=== PATIENT | female | born 1995 | race Caucasian/White ===

== ENCOUNTER → 2019-07-10 | Day surgery (SDC) | payer OTHER ==
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
[~2019-07-10] MED LIST: ACETAMINOPHEN 1000 MG/100 ML 100 ML IV ONE; ACETAMINOPHEN 1000 MG/100 ML IV ONE; DEXAMETHASONE SOD PHOS INJ 4 MG/ML VIAL ONE; EPINEPHRINE HCL 1:1000 1ML 1 MG/ML AMP ONE; IODINE PO; IRON PO; LIDOCAINE 1% W/EPINEPHRINE 20 ML VIAL ONE; LIDOCAINE HCL (LTA) 4 ML SOLN ONE; LIDOCAINE HCL 2% LOCAL INJ 5 ML SDV VIAL INJ ONE; ONDANSETRON HCL INJ 2MG/ML 2ML 2 MG/ML VIAL ONE; PRENATAL VITAM1 EACH PO; PROPOFOL IV EMULSION 10 MG/ML 20 ML VIAL ONE; SEVOFLURANE INHAL SOLN 250 ML PEN BTL ONE; VITAMIN B 12 PO; VITAMIN D3 PO
[2019-07-10 14:55] VITALS: BP 124/70
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
--- OUTSIDE RECORDS SUMMARY | 2019-07-20 10:37 | XMS REPORT ---
Author Author [facility] Address Unknown Phone Unavailable Care Team Providers Care Export Specialist Name Role Phone Vaibhav Mulligan Unavailable Unavailable Anthony Sneed Unavailable Unavailable Mariana Garrido Unavailable Unavailable Myrtle Carreno Unavailable Unavailable Problems This patient has no known problems. Allergies, Adverse Reactions, Alerts This patient has no known allergies or adverse reactions. Medications This patient has no known medications. Results Test Description Test Time Test Comments Text Results Atomic Results Result Comments Sinus Wo Cont 2019-07-05 17:20:00 [place] [address] [facility] REPORT Name: FARAZ GALVANKAMALJIT ZAZUETA Acct Number: [id number] :1995 Age:24 Sex:F Ord Phys: Vaibhav Mulligan MD Unit Number: [id number] [facility] Dr: Status: REG REF RAD Exam Date: 07/05/19 EXAM DESCRIPTION: CTSinus Wo Cont07/05/2019 4:58 pm CLINICAL HISTORY: J32.0 COMPARISON: None. TECHNIQUE: Computed axial tomography of the sinuses were obtained with coronal and sagittal reconstruction. All CT scans are performed using dose optimization technique as appropriate and may include automated exposure control or mA/KV adjustment according to patient size. FINDINGS: The maxillary, ethmoid, frontal and sphenoid sinuses are clear. The ostiomeatal complexes are patent. The mastoids are clear. Nasal septum is deviated towards the left IMPRESSION: 1. Clear sinuses. 2. Patent ostiomeatal complexes. 3. Deviated nasal septum Signed By: Brendon Avendaño MD Signed AT: 07/05/19 1721 Thyroid Para Parotid Gland 2019-07-05 17:07:00 [place] [address] [facility] REPORT Name: MANDYQIANAMI ZAZUETA Acct Number: [id number] :1995 Age:24 Sex:F Ord Phys: Vaibhav Mulligan MD Unit Number: [id number] [facility] Dr: Status: REG REF RAD Exam Date: 07/05/19 EXAM DESCRIPTION: US - Thyroid Para Parotid Gland - 07/05/2019 4:44 pm CLINICAL HISTORY: ICD E04.1 COMPARISON: None FINDINGS: The right lobe of the thyroid measures 4.5 x 1.6 x 2 centimeters. The left lobe of the thyroid measures 4.3 x 1.6 x 1.3 centimeters. The echotexture of each lobe of the thyroid gland is homogeneous. A nodule is not seen. 1.1 x 0.6 centimeter submental lymph node probably reactive in nature IMPRESSION: Unremarkable thyroid ultrasound Signed By: Brendon Avendaño MD Signed AT: 07/05/19 1708 Hep B Surface AG w/ Confirm 2019-03-04 12:42:00 Primary Language Haitian Nonreactive^^SCT^NonreactiveCONFIRMATION Not required according to the current package insert. Rubella virus antibody screen 2019-03-02 20:40:00 Rubella virus antibody screen (test qgfe=OTL4672) IMMUNE Primary Language EnglishComplete blood count (CBC) with automated white blood cell (WBC) kridavnegsqt1348-16-56 20:10:00* Test Item Value Reference Range Comments White blood cell count (test xxqu=UGV5276) 14.7 4.3-10.9 Blood erythrocytes count (number/volume) (test khns=93782-5) 3.65 M/ul 3.86-4.86 Hemoglobin measurement (test kdel=NCM3923) 11.0 g/dL 12.0-15.0 Blood hematocrit (volume fraction) (test jpzu=88633-0) 32.9 % 36.0-45.0 MCV (test nsik=YDK0238) 90.3 fL 80-100 30.2 MCHC (test code=MCHC) 33.4 g/dL 32.0-36.0 Platelets (test code=PLT) 120 152-406 Red Cell Distribution Width (test code=RDW) 16.7 % 12.1-15.2 Blood platelet mean volume (test xkek=63264-6) 10.5 fL 7.6-11.3 Neutrophils % (test code=YOANNA%) 80.6 % 41.7-73.7 Lymphocytes/leuk NFr Bld (test yddj=01342-9) 11.1 % 15.3-44.8 Monocyte percentage (test obvm=CDN0908) 6.6 % 3.3-12.3 1.2 Basophil % (test fudg=30003-3) 0.5 % 0-1.3 Absolute neutrophil count (test rifu=JXH9254) 11.9 1.8-8.0 Absolute lymphocyte count (test vhiu=99716-0) 1.6 0.7-4.9 Absolute monocyte count (test qpjh=VLH5104) 1.0 0.1-1.3 Absolute Eosinophils (test code=EOA) 0.2 0-0.5 Absolute Basophils (test code=BASA) 0.1 0-0.5 Primary Language EnglishBlood smear scan (BSS)2019-03-02 20:10:00* Test Item Value Reference Range Comments Blood morphology interpretation narrative (test awpk=84112-7) NOT SEEN NOT SEEN Primary Language Bvvknib03191--MOKS PATH LEVEL 11795-16-37 17:15:00 RUN DATE: 03/02/19 [facility]*Kandi davis* PAGE 1 RUN TIME: 1715 Specimen Inqu iry PATIENT: QIAN GALVAN ACC T: [id number] LOC: [facility] U: [id number] AGE/SX: 23/F ROOM: [facility] RE03/01/19REG DR: Vini Sneed : 1995 BED: B DIS: STATUS: ADM IN TLOC: SP EC : [id number] RECD: 03/01/19-999 STATUS: ANDRE MONROE NUM: [id number] MAINE: 03/01/19- DR: Sharmila Sneed DO ENTERED: 03/01/19-1305 SP TYPE: INPATIENT OT DR: ORDERED: [id number] CODES: PLACENTA, NOS PROCEDURES: 52076 (03/02/19- 1033) TISSUES: PLACENTA, NOS - PLACENTA CLINICAL HISTORY Pre- op Diagnosis: Postdate prolapsed cord, previous delive ry.Post-op Diagnosis: Same as pre-op. DIAGNOSIS Placenta, geovany an delivery: - Third trimester placenta (700 grams) with one focus of early i nfarct (1.5 cm in greatest dimension, and one small focus of hemorrh age (0.7 cm in greatest dimension) - membranes with pigment ed macrophages, consistent with meconium staining - Umbilical cor d with three vessels CPT 35129 GROSS DESCRIPTION The case is received in one part, labeled with the patient's name Qian Galvan andaccession #[id number] accompanied by a requisition slip labeled with the patient's name andthe same cession number. The specimen is received in formalin, labeled with the patient's name and consists of asingleton placenta with eccentrically inserted umbilical cord and peripherally attachedfetal membranes. The trimmed placenta weighs 700 g latrice and measures 22 x 17.5 x 4 cm. Thefetal surface is wiggins-green and has normal appearing vasculature. The maternal surface istan-dark red with predominantly i ntact lobules. An undisrupted area is identified whichmeasures 4 x 2 cm. The jose cental disc is serially sectioned. The cut surface reveals twowhitish areas whic h measure 0.5 and 1.2 cm in greatest dimension. The disrupted area haspossible h emorrhage. The umbilical cord measures 80 cm in length and averages 1.2 cm charly meter. The membranes are semitranslucent. No inflammatory exudate is gross ly seen.Biometry Teacher sections are submitted as follows: cassette 1 \X96\ umbi lical cord; cassette 2and 3 \X96\ placenta with whitish area; cassette 4 \X96\ d isrupted area; cassette 5 \X96\ fetalmembranes. (YX) CONTINUED ON NEXT PAGE RUN DATE: 03/02/19 [facility]Live* PAGE 2 RUN TIME: 1715 Specimen Inquiry SPEC: 19: [id number] PATIENT: QIAN GALVAN [id number] (Continued)- MICROSCOPIC DESCRIPTION Sections show mature chorionic villi w ith one focus of early infarct and one small focus ofhemorrhage. The membr anes have scattered pigmented macrophages. The umbilical cord hasthree vessels w ith two arteries and one vein. There is no funisitis. Signed ____(signature on file) STORM RICO MD 03/02/19 1715 END OF REPORT Complete blood count (CBC) with automated white blood cell (WBC) xnjzhfrciyhd0026-80-30 06:58:00* Test Item Value Reference Range Comments White blood cell count (test ivty=SAF3139) 13.8 4.3-10.9 Blood erythrocytes count (number/volume) (test fnqw=06380-6) 3.42 M/ul 3.86-4.86 Hemoglobin measurement (test ppty=XZK7199) 10.3 g/dL 12.0-15.0 Blood hematocrit (volume fraction) (test ytqs=62997-8) 31.1 % 36.0-45.0 MCV (test iukt=JIX0619) 90.9 fL 80-100 30.2 MCHC (test code=MCHC) 33.2 g/dL 32.0-36.0 Platelets (test code=PLT) 105 152-406 Red Cell Distribution Width (test code=RDW) 16.5 % 12.1-15.2 Blood platelet mean volume (test xbiu=42548-8) 11.1 fL 7.6-11.3 Neutrophils % (test code=YOANNA%) 79.6 % 41.7-73.7 Lymphocytes/leuk NFr Bld (test tutf=30403-3) 11.8 % 15.3-44.8 Monocyte percentage (test xttw=RJK3880) 7.3 % 3.3-12.3 0.7 Basophil % (test fijp=64876-4) 0.6 % 0-1.3 Absolute neutrophil count (test iuuq=LDC5473) 11.0 1.8-8.0 Absolute lymphocyte count (test sstz=43970-0) 1.6 0.7-4.9 Absolute monocyte count (test xuhj=BEH8643) 1.0 0.1-1.3 Absolute Eosinophils (test code=EOA) 0.1 0-0.5 Absolute Basophils (test code=BASA) 0.1 0-0.5 Primary Language EnglishQualitative serum rapid plasma reagin (RPR) test 2019-03-01 17:40:00* Test Item Value Reference Range Comments Qualitative serum rapid plasma reagin (RPR) test (test ydub=48662-3) Negative NON-REACT RPR Titer (test code=RPRTITER) Not Done Primary Language EnglishABO + Rh Svk7512-40-11 08:43:00* Test Item Value Reference Range Comments ABO + Rh Bld (test nzrh=525-6) O POSITIVE HIV (1&2) Antibody Myyhj7000-13-04 06:34:00* Test Item Value Reference Range Comments HIV (1\T\2) Antibody Rapid (test code=HIVRAPID) NONREACTIVE NONREACTIVE Called to DR. MONROY at 0633 by GUDELIA Was there 100% Readback? Y Primary Language EnglishRh Rhwblv2389-85-96 06:27:00* Test Item Value Reference Range Comments Rh Bld (test ldsv=06978-8) RHA Primary Language EnglishGlucose [Mass/volume] in Serum or Isypvt7668-82-03 06:24:00* Test Item Value Reference Range Comments Glucose [Mass/volume] in Serum or Plasma (test tvuk=7344-6) 96 mg/dL 74-106 Primary Language EnglishUrine drug suneaz3559-66-01 06:21:00* Test Item Value Reference Range Comments Phencyclidine [Presence] in Urine by Screen method (test mcjx=39210-6) Negative NEGATIVE CUT-OFF LEVEL: 25 ng/mL Benzodiazepines [Presence] in Urine by Screen method (test wubz=87725-7) Negative NEGATIVE CUT-OFF LEVEL: 200 ng/mL Benzoylecgonine [Presence] in Urine by Screen method (test izdx=55428-9) Negative NEGATIVE CUT-OFF LEVEL: 300 ng/mL Amphetamines [Presence] in Urine by Screen method (test lyda=67308-0) Negative NEGATIVE CUT-OFF LEVEL: 1000 ng/mL Cannabinoids [Presence] in Urine by Screen method (test gcnf=54177-7) Negative NEGATIVE CUT-OFF LEVEL: 50 ng/mL Opiates [Presence] in Urine by Screen method (test fikx=05953-0) Negative NEGATIVE CUT-OFF LEVEL: 2000 ng/mL Barbiturates [Presence] in Urine by Screen method (test zeqy=78483-7) Negative NEGATIVE CUT-OFF LEVEL: 200 ng/mL Screening urine methadone detection using 300 ng/ml cutoff (test enpd=54553-5) Negative NEGATIVE CUT-OFF LEVEL: 300 ng/mL These results are screening test methodology and are to be used only for medical purposes. Positive results have not been confirmed. Unconfirmed screening results must not be used for non-medical purposes (employment or legal testing). For a confirmed analytical result, GM/MS is the preferred method and must be sent to a Reference Laboratory. Primary Language EnglishComplete blood count (CBC) with automated white blood cell (WBC) inshwtsavapr9793-66-31 06:14:00* Test Item Value Reference Range Comments White blood cell count (test syel=FNQ0666) 14.6 4.3-10.9 Blood erythrocytes count (number/volume) (test xsyl=35570-5) 4.04 M/ul 3.86-4.86 Hemoglobin measurement (test yuhy=MVV0062) 12.4 g/dL 12.0-15.0 Blood hematocrit (volume fraction) (test pdwk=76126-9) 36.5 % 36.0-45.0 MCV (test ntcq=HGB6288) 90.2 fL 80-100 30.7 MCHC (test code=MCHC) 34.0 g/dL 32.0-36.0 Platelets (test code=PLT) 127 152-406 Red Cell Distribution Width (test code=RDW) 15.8 % 12.1-15.2 Blood platelet mean volume (test ayit=22286-5) 11.4 fL 7.6-11.3 Neutrophils % (test code=YOANNA%) 79.0 % 41.7-73.7 Lymphocytes/leuk NFr Bld (test fumg=73357-8) 12.2 % 15.3-44.8 Monocyte percentage (test klpd=PFZ6492) 8.1 % 3.3-12.3 0.5 Basophil % (test nhdv=37786-9) 0.2 % 0-1.3 Absolute neutrophil count (test vqkj=VZN8284) 11.5 1.8-8.0 Absolute lymphocyte count (test nbzp=51533-0) 1.8 0.7-4.9 Absolute monocyte count (test zyhr=QTI8087) 1.2 0.1-1.3 Absolute Eosinophils (test code=EOA) 0.1 0-0.5 Absolute Basophils (test code=BASA) 0.0 0-0.5 Primary Language [facility] Metabolic Qyjgs2732-72-25 13:09:00* Test Item Value Reference Range Comments Sodium level (test fsho=EZJ8491) 139 meq/L 135-145 3.5 Chloride measurement (test ttix=GVD5243) 106 meq/L 101-111 Bicarbonate (test code=CO2) 26 meq/L 21-31 Glucose measurement (test xsag=VLO4690) 103 mg/dL 65-120 ADA Clinical Practice Recommendation: <100 mg/dl=Normal Fasting Glucose BUN Bld-mCnc (test yriq=1660-5) 11 mg/dL 6-20 Creatinine measurement (test axfs=PRR9404) 0.67 mg/dL 0.44-1.00 The creatinine method used has been calibrated to be traceable to Isotope dilution Mass Spectrometry (IDMS). For more information: www.nkdep.nih.gov Estimated glomerular filtration rate (GFR) determination (test bhcm=87758-3) >90 mL =/>90 FOR CHRONIC KIDNEY DISEASE: GFR STAGE DESCRIPTION=/>90 STAGE 1 NORMAL--OR-- MINIMAL KIDNEY DAMAGE WITH NORMAL GFR 60-89 STAGE 2 MILD DECREASE IN GFR 30-59 STAGE 3 MODERATE DECREASE IN GFR 15-29 STAGE 4 SEVERE DECREASE IN GFR <15 STAGE 5 KIDNEY FAILURE The Glomerular Filtration Rate (GFR) has been calculated using the IDMS-Traceable MDRD Study Equation. Calcium Level (test code=CA) 8.9 mg/dL 8.5-10.5 Ckfvrhbul4010-70-49 13:09:00* Test Item Value Reference Range Comments Magnesium (test code=MG) 1.9 mg/dL 1.8-2.5 Prothrombin time (PT) with international normalized ratio (INR)2017-12-13 13:07:00* Test Item Value Reference Range Comments PT Prothrombin Time (test code=PROTIME) 12.6 s 9.5-12.5 INR in Blood by Coagulation assay (test ydua=25361-1) 1.07 Monitor pts using INR value (not prothrombin time) INR Coumadin Therapy: Low Range (prophylaxis) 2.0-3.0 High Range (high risk of clot formation) 2.5-3.5 Test Ordered to Rule Out VTE/DVT? N Comment Bed:14 Test Ordered to Rule Out VTE/ DVT? NPTT, Activated Partial Lgcwxi7928-89-05 13:07:00* Test Item Value Reference Range Comments PTT, Activated Partial Thromb (test code=PTT) 30.8 s 24.3-36.9 Test Ordered to Rule Out VTE/DVT? N Comment Bed:14 Test Ordered to Rule Out VTE/ DVT? NComplete blood count (CBC) with automated white blood cell (WBC) wsyduxhexlqo1072-79-58 13:01:00* Test Item Value Reference Range Comments White blood cell count (test jfvi=CHU7562) 11.7 4.3-10.9 Blood erythrocytes count (number/volume) (test dazz=25318-4) 4.67 M/ul 3.86-4.86 Hemoglobin measurement (test qjxe=QAP8206) 13.8 g/dL 12.0-15.0 Blood hematocrit (volume fraction) (test bfjk=09413-4) 41.2 % 36.0-45.0 MCV (test crbr=04956-2) 88.2 fL 80-100 MCH (test pmvq=18413-7) 29.6 pg 27.0-35.0 MCHC (test code=MCHC) 33.6 g/dL 32.0-36.0 Platelets (test code=PLT) 217 152-406 Red Cell Distribution Width (test code=RDW) 13.7 % 12.1-15.2 Blood platelet mean volume (test fixc=63799-4) 9.4 fL 7.6-11.3 Neutrophils % (test code=YOANNA%) 75.0 % 41.7-73.7 Lymphocytes/leuk NFr Bld (test ckfr=57036-4) 16.8 % 15.3-44.8 Monocyte percentage (test tyov=3119-9) 6.6 % 3.3-12.3 Eosinophil % (test hjnk=681-9) 1.1 % 0-4.4 Basophil % (test yulq=04490-4) 0.5 % 0-1.3 Absolute neutrophil count (test heul=445-0) 8.8 1.8-8.0 Absolute lymphocyte count (test wyps=40896-1) 2.0 0.7-4.9 Absolute monocyte count (test hyqz=264-6) 0.8 0.1-1.3 Absolute Eosinophils (test code=EOA) 0.1 0-0.5 Absolute Basophils (test code=BASA) 0.1 0-0.5 Urine test at point of eibb3007-92-00 12:59:00* Test Item Value Reference Range Comments Urine Test (test code=UPG) NEG NEG Urine specific gravity measurement (test blpb=8191-5) 1.020 1.005-1.030 Tested by: BLOOD: 3+ GLUCOSE: NEG KETONES: NEG LEUKOCYTES: NEG NITRITE: NEG P H: 8.5 PROTEIN: 2+ dh NEG 3+ NEG NEG NEG NEG 8.5 2+ Y 1.020Urine dipstick testing at tzmjm-vk-zixu4223-05-15 12:59:00* Test Item Value Reference Range Comments Urine glucose detection (test yuhu=4740-7) Negative NEG Urine Ketones (test code=UKET) NEGATIVE NEG Urine blood detection (test gejy=72378-4) 3+ NEG Urine pH (test zdxc=4658-3) 8.5 5.0-7.0 Urinalysis with microscopy (test fphq=80192-7) 2+ NEG Urine Nitrate (test code=UNIT) NEGATIVE NEG Urine Leukocyte Esterase (test code=UESTR) NEGATIVE NEG Tested by: BLOOD: 3+ GLUCOSE: NEG KETONES: NEG LEUKOCYTES: NEG NITRITE: NEG P H: 8.5 PROTEIN: 2+ dh NEG dh 3+ NEG NEG NEG NEG 8.5 2+ Y 1.020Ova and parasites 2017-05-11 15:43:00* Test Item Value Reference Range Comments Ova and parasites (test tlvd=266-5) REPORT OVA AND PARASITES, CONCENTRATE AND PERMANENT SMEAR EXAMINATION FOR OVA AND PARASITES SOURCE : STOOL RESULT/COMMENT: NO OVA AND PARASITES SEEN. Reference Range: No Ova and Parasites seen Routine Ova and Parasite Exam may not detect some parasites that occasionally cause diarrheal illness. Test code(s) 16111S[19044](Cryptosporidium Ag, DFA) and/or 87928I[78460] (Cyclospora and Isospora Exam) may be ordered to detect these parasites. One negative sample does not necessarily rule out the presence of a parasitic infection. Assay performed by wet mount after concentration. PARASITE EXAM, TRICHROME STAIN SOURCE : STOOL RESULT/COMMENT: NO OVA AND PARASITES SEEN. Routine Ova and Parasite Exam may not detect some parasites that occasionally cause diarrheal illness. Test code(s) 00525G[85378](Cryptosporidium Ag, DFA) and/or 66549I[65834] (Cyclospora and Isospora Exam) may be ordered to detect these parasites. One negative sample does not necessarily rule out the presence of a parasitic infection. Bacterial culture w DZ4920-28-32 10:05:00* Test Item Value Reference Range Comments Bacterial culture w ID (test kapf=2459-5) NO SALMONELLA,SHIGELLA OR CAMPYLOBACTER ISOLATED. Brain Wo ContCHI [place] [address] [facility]OLOG[facility] REPORT Name: QIAN GALVAN Acct Number: [id number] :1995 Age:22 Sex:F Ord Phys: [place] Mccl[facility] Unit Number: [id number] [facility] Dr: Junito Carreno MD Status: REG ER ER Exam Date: 12/13/17 EXAM DESCRIPTION: MRI - Brain Wo Cont - 12/13/2017 4:07 pm CLINICAL HISTORY: Dizziness, weakness, intermittent altered mental status COMPARISON: None. TECHNIQUE: Sagittal T1-weighted images were obtained along with axial PD, heavily T2-weighted and T2-FLAIR images. Axial DWI and ADC mapping sequences were also obtained along with coronal heavily T2-weighted images. FINDINGS: No intracranial hemorrhage, mass or acute infarction. There is no edema or shift of midline structures. No extra-axial fluid collections. Martinez-matter/white matter junction is preserved. Signal voids are seen as a normal finding in the major intracranial vessels. No globe or orbital content abnormality. Sella and suprasellar regions are normal. No tonsillar ectopia. There is no cerebellopontine angle mass or other posterior fossa abnormality. Mastoid air cells and paranasal sinuses are clear. IMPRESSION: Negative non-contrast MRI of the Brain. Signed By: Kiet Robledo MD Signed AT: 12/13/17 5529
== END | disposition home or self-care (01) ==
LOC: OR 11:02
PROVIDERS: ATTEND Otolaryngology Otolaryngology/Facial Plastic Surgery
DX: M95.0 Acquired deformity of nose (principal); J34.89 Other specified disorders of nose and nasal sinuses; J32.9 Chronic sinusitis, unspecified
CPT/HCPCS: 30520; 81025; 88300; J0131; J0171; J1100; J2001; J2405; J2704